=== PATIENT | male | born 1995 | race Caucasian/White ===

== ENCOUNTER 2017-06-26 17:10 | Emergency (ER) | payer BC ==
[2017-06-26] VITALS (18 sets, daily range): BP systolic 133–173; BP diastolic 34–118; PULSE 74–106; TEMP 36.7; O2SAT 94–100; Ht 188 cm; Wt 84.1 kg
[~2017-06-26] VITALS: Ht 188 cm; Wt 84.1 kg
[2017-06-26] MEDS ORDERED: IBUP-1050 PO (18:08)
--- NOTE | 2017-06-26 18:08 | EMERGENCY ROOM VISIT NOTE ---
History First contact with patient: 17:55 Chief Complaint: WRIST PAIN Stated Complaint: BROKEN WRIST SENT BY DR ATWOOD OFFICE History of Present Illness The patient is a 22 year old male who presents to the Emergency Room with complaints of fall and left wrist injury. The patient states that he fell last night. He admits to drinking alcohol. He does not recall how he fell. He states that he has abrasion and mild pain in his low back. He states he feels as though he pulled a muscle in his left groin. His biggest complaint is of left wrist pain. The patient rates his discomfort a 7/10. He denies striking his head or having headache, contusion, bleeding to the head. The patient was seen at [facility] earlier today and had an x-ray. The patient states that this was reviewed by Dr. Kraus who recommended he come to the emergency department. Review of Systems A 10 system review of systems was completed with positives and pertinent negatives listed in the HPI. Past Medical/Surgical History patient denies Social History Smoking Status: Never Smoker Housing Status: lives with family Occupation Status: [employer] student Current/Historical Medications Scheduled PRN Hydrocodone/Acetaminophen 5MG/325MG ([place] 5MG/325MG), 1-2 TABLET PO Q6H PRN for Pain Ibuprofen (Advil), 600 MG PO DAILY PRN for Pain or Fever Physical Exam Vital Signs Date Time Temp Pulse Resp B/P (MAP) Pulse Ox O2 Delivery O2 Flow Rate FiO2 06/26/17 21:20 92 20 150/91 97 Room Air 06/26/17 21:15 97 20 150/91 98 Room Air 06/26/17 21:00 98 20 153/98 97 Room Air 06/26/17 20:45 97 20 156/107 97 Room Air 06/26/17 20:44 90 20 156/107 98 Room Air 06/26/17 20:30 104 16 155/108 97 Room Air 06/26/17 20:25 06/26/17 20:15 105 22 155/103 96 Room Air 06/26/17 20:00 90 16 133/93 97 Room Air 06/26/17 19:45 93 28 151/110 100 Nasal Cannula 3.0 06/26/17 19:30 99 18 156/106 96 Nasal Cannula 3.0 06/26/17 19:15 79 27 150/116 94 Room Air 06/26/17 19:10 74 26 164/96 98 Nasal Cannula 3.0 06/26/17 19:05 87 27 156/110 98 Nasal Cannula 3.0 06/26/17 19:00 85 26 161/34 98 Nasal Cannula 3.0 06/26/17 18:55 93 29 165/101 99 Nasal Cannula 3.0 06/26/17 18:50 93 26 173/118 100 Nasal Cannula 3.0 06/26/17 18:46 94 20 145/118 99 Nasal Cannula 2.0 06/26/17 18:45 106 16 145/118 100 Nasal Cannula 3.0 06/26/17 18:39 36.7 100 12 155/111 98 Room Air 06/26/17 18:38 97 06/26/17 17:17 36.8 118 18 159/70 96 Room Air Physical Exam VITALS: Vitals are noted on the nurse's note and reviewed by myself. Vital signs stable. GENERAL: This is a 22-year-old male, in no acute distress, nondiaphoretic, well- developed well-nourished. SKIN: There is a very superficial, nonbleeding abrasion to the left low back. There is no tenting of the skin. Capillary reflex less than 2 seconds. HEAD: Normocephalic atraumatic. EARS: External auditory canals clear, tympanic membranes pearly galicia without erythema or effusion bilaterally. No hemotympanum. No mosley sign. No mastoid tenderness. EYES: Pupils equal round and reactive to light and accommodation. Conjunctivae without injection, sclerae without icterus. Extraocular movements intact. NOSE: Patent, turbinates without inflammation or discharge. No sinus tenderness. No septal hematoma or bleeding. FACE: No facial tenderness. Full range of motion of the jaw without tenderness. MOUTH: Mucous membranes moist. Pharynx without erythema or exudate. Uvula midline. Airway patent. Tongue does not deviate. NECK: Supple without nuchal rigidity. Cervical spine is nontender. Full range of motion of the neck without tenderness. No JVD. HEART: Regular rate and rhythm without murmurs gallops or rubs. LUNGS: Clear to auscultation bilaterally without wheezes, rales or rhonchi. No retractions or accessory muscle use. No chest tenderness. ABDOMEN: Positive bowel sounds x 4. Soft, nontender, without masses or organomegaly. MUSCULOSKELETAL: There is tenderness to palpation to the left wrist diffusely. Sensation is intact to sharp but the patient reports numbness in all of the fingers. There is no tenderness to palpation of the left forearm, elbow, humerus or shoulder. Remaining extremities are unremarkable. There is no tenderness over the lumbar vertebrae. There is no flank ecchymosis. NEURO: Patient was alert and oriented to person place and time. Normal Mini- Mental status exam. Normal sensation to light and sharp touch. No focal neurological deficits. Medical Decision & Procedures ER Provider Diagnostic Interpretation: INTRAPROCEDURAL LEFT WRIST 2 VIEWS CLINICAL HISTORY: CLOSED REDUCTION LT WRIST COMPARISON STUDY: No previous studies for comparison. FINDINGS: 15 seconds of fluoroscopic time was utilized. 2 fluoroscopic spot images are provided for interpretation. There are small fracture fragments arising from the dorsal aspect of the distal radius. There is a triquetral fracture. There is a scaphoid fracture. There is no dislocation. IMPRESSION: 1. Fractures of the scaphoid, radius and triquetrum 2. No evidence of dislocation Laboratory Results 06/26/17 18:20 Red Blood Count 5.33, Mean Corpuscular Volume 87.1, Mean Corpuscular Hemoglobin 30.8, Mean Corpuscular Hemoglobin Concent 35.3, Mean Platelet Volume 8.8, Neutrophils (%) (Auto) 81.1, Lymphocytes (%) (Auto) 9.7, Monocytes (%) (Auto) 8.9, Eosinophils (%) (Auto) 0.0, Basophils (%) (Auto) 0.0, Neutrophils # (Auto) 9.40, Lymphocytes # (Auto) 1.13, Monocytes # (Auto) 1.03, Eosinophils # (Auto) 0.00, Basophils # (Auto) 0.00 06/26/17 18:20 Test 06/26/17 18:20 White Blood Count 11.60 K/uL (4.8-10.8) Red Blood Count 5.33 M/uL (4.7-6.1) Hemoglobin 16.4 g/dL (14.0-18.0) Hematocrit 46.4 % (42-52) Mean Corpuscular Volume 87.1 fL (80-100) Mean Corpuscular Hemoglobin 30.8 pg (25-34) Mean Corpuscular Hemoglobin Concent 35.3 g/dl (32-36) Platelet Count 240 K/uL (130-400) Mean Platelet Volume 8.8 fL (7.4-10.4) Neutrophils (%) (Auto) 81.1 % Lymphocytes (%) (Auto) 9.7 % Monocytes (%) (Auto) 8.9 % Eosinophils (%) (Auto) 0.0 % Basophils (%) (Auto) 0.0 % Neutrophils # (Auto) 9.40 K/uL (1.4-6.5) Lymphocytes # (Auto) 1.13 K/uL (1.2-3.4) Monocytes # (Auto) 1.03 K/uL (0.11-0.59) Eosinophils # (Auto) 0.00 K/uL (0-0.5) Basophils # (Auto) 0.00 K/uL (0-0.2) RDW Standard Deviation 40.0 fL (36.4-46.3) RDW Coefficient of Variation 12.6 % (11.5-14.5) Immature Granulocyte % (Auto) 0.3 % Immature Granulocyte # (Auto) 0.04 K/uL (0.00-0.02) Anion Gap 6.0 mmol/L (3-11) Est Creatinine Clear Calc Drug Dose 124.6 ml/min Estimated GFR () 111.4 Estimated GFR (Non- 96.1 BUN/Creatinine Ratio 8.9 (10-20) Calcium Level 9.3 mg/dl (8.5-10.1) Total Bilirubin 1.5 mg/dl (0.2-1) Aspartate Amino Transf (AST/SGOT) 56 U/L (15-37) Alanine Aminotransferase (ALT/SGPT) 37 U/L (12-78) Alkaline Phosphatase 86 U/L (45-117) Total Protein 8.4 gm/dl (6.4-8.2) Albumin 4.7 gm/dl (3.4-5.0) Globulin 3.7 gm/dl (2.5-4.0) Albumin/Globulin Ratio 1.3 (0.9-2) Medications Administered Medications (Trade) Dose Ordered Sig/Osbaldo Route Start Time Stop Time Status Last Admin Dose Admin Acetaminophen/ Hydrocodone Bitart ([place] 5/325mg Home Pack) 1 homepack UD ONCE PO 06/26/17 19:30 06/26/17 19:31 DC 06/26/17 20:47 1 [facility] ED Course The patient was seen and examined. Previous visits were reviewed. The patient presents to the emergency department for a left wrist fracture diagnosed and splinted by [facility]. He was referred to the emergency department by orthopedics for reduction of the perilunate dislocation. The patient has superficial abrasion to the lower back but no tenderness over the spine. He does not have any flank ecchymosis. He has not had any hematuria. He has no abdominal tenderness on examination. He does not have any signs or symptoms of intracranial bleeding or skull fracture. He does not have any chest wall tenderness on examination. He does not have any neurologic deficit. He is able to walk without any difficulty. I initially discussed the case with . He was able to review the outpatient x-rays. He states the patient will need conscious sedation and reduction. The patient was advised of this. I also discussed this with my attending physician, Dr. Avila. Conscious sedation was provided by Dr. Avila, please see his dictation for details. The reduction and splinting was performed by orthopedics. Please see their dictation for details. The patient was monitored for several hours after the sedation. He was alert and oriented. The discharge instructions were done by orthopedics. The patient should return to the ER with any worsening symptoms. Otherwise, he should follow-up with orthopedics in one week. The patient was also seen and examined by who agrees with the assessment and treatment plan. Medical Decision The differential diagnosis includes intracranial bleeding, skull fracture, lumbar fracture, renal contusion, intra-abdominal injury, extremity fracture, among others Medication Reconcilliation Current Medication List: was personally reviewed by me Blood Pressure Screening Patient's blood pressure: Elevated blood pressure Blood pressure disposition: Elevated BP felt to be situational Impression Primary Impression: Closed perilunate dislocation of left wrist Departure Information Prescriptions Hydrocodone/Acetaminophen 5MG/325MG ([place] 5MG/325MG) Tab 1-2 TABLET PO Q6H Y for Pain, #12 TAB For Initial Treatment Prov: John Ewing,P.A. 06/26/17 Referrals No Doctor, Assigned (PCP) Patient Instructions My [facility] Problem Qualifiers Primary Impression: Closed perilunate dislocation of left wrist Encounter type: initial encounter Qualified Codes: S63.095A - Other dislocation of left wrist and hand, initial encounter
[2017-06-26 18:35] LABS: COMPLETE YES; HEMATOCRIT 46.4 % (42-52); IG% 0.3 %; LYMPH % 9.7 %; LYMPH ABS # 1.13 K/uL (1.2-3.4); MEAN CELL VOLUME 87.1 fL (80-100); MEAN CORPUSCULAR HEMOGLOBIN 30.8 pg (25-34); MEAN CORPUSCULAR HGB CONC 35.3 g/dl (32-36); MEAN PLATELET VOLUME 8.8 fL (7.4-10.4); MONO % 8.9 %; NEUT % 81.1 %; PLATELET COUNT 240 K/uL (130-400); RED BLOOD COUNT 5.33 M/uL (4.7-6.1)
[2017-06-26] MEDS ORDERED: KETAMINE HCL INJ 50 MG/ML 10 ML VIAL ONE (18:40)
[2017-06-26 19:01] LABS: BUN/CREATININE RATIO 8.9 (10-20); CALCIUM 9.3 mg/dl (8.5-10.1); CREATININE 1.1 mg/dl (0.60-1.40); POTASSIUM 3.6 mmol/L (3.5-5.1)
[2017-06-26 19:04] LABS: ALB/GLOB RATIO 1.3 (0.9-2)
--- NOTE | 2017-06-26 19:26 | EMERGENCY ROOM VISIT NOTE ---
ED Visit Note First contact with patient: 17:55 Procedural Sedation Indication left perilunate dissociation and scaphoid fracture reduction. Total time: 24 minutes. Written consent was obtained after the risks and benefits were explained to the patient, including, but not limited to aspiration, allergic reaction, breathing difficulties, cardiac complications, vomiting, pain, event recall, bleeding, and /or infection. Pre-sedation examination and paperwork completed. The patient was on 100% oxygen via NRB prior to the procedure. Continous end tidal CO2 monitoring, pulse oximetry, and cardiac monitoring were utilized. Suction, airway equipment, medications, respiratory equipment, and appropriate personnel were prepared prior to the initiation of the procedure. A time out was taken. Sedation was achieved utilizing 160 mg of ketamine. After I observed the patient had reached the appropriate level of sedation the main procedure was performed without complication. Sedation was discontinued and the monitoring continued. The patient recovered quickly from the effects of the medication without complication or adverse event.
[2017-06-26] MEDS ORDERED: NORCO 5/325MG HOME PACK PO ONE (19:30)
[2017-06-26] MEDS ORDERED: HYDR-5688 PO (19:34)
--- NOTE | 2017-06-26 20:01 | Medical Consult ---
Consultation Note Date of Service Jun 26, 2017. Consultation Note CHIEF COMPLAINT: Left wrist injury. HISTORY OF PRESENT ILLNESS: He was a pleasant 22-year-old male, [employer] student, right-hand dominant, who fell down the stairs at a social last evening injuring his left wrist. He went to health services earlier today where x-rays were obtained and he was to have seen me in the office tomorrow, but he was contacted by my office after I looked at his x-rays to go to the emergency room where a closed reduction could be performed for his Saldaña scaphoid perilunate dislocation. He admits to some numbness in his thumb index and middle finger approximately 25%. Past medical history: Denies. past surgical history: Denies. MEDICATIONS: None. ALLERGIES: No known Drug allergies. FAMILY HISTORY: Noncontributory. SOCIAL HISTORY: [employer] student. Admits to alcohol use. Denies smoking. REVIEW OF SYSTEMS: A 10-point review of systems is noted in the ER medical record. PHYSICAL EXAM: Patient is in no acute distress breathing easily at 16 breaths per minute. The patient ambulates with a normal gait and coordination. They have an appropriate mood and affect. They weigh 84 kg and are 188 cm tall. Focusing on his left upper extremity, he has multiple abrasions of the wrist and hand. He has swelling about the wrist and hand. He has brisk cap refill of all his digits. His sensation to light touch is slightly diminished in the thumb and index finger more so than the middle finger approximately 25% at most , his ulnar 2 digits are intact. His motor to his median, radial, ulnar, AIN, PIN is intact, but limited secondarily to pain. RADIOGRAPHS: 3 views done at [facility] showed a perilunate dislocation and a suspected scaphoid fracture. IMPRESSION: Left wrist Trans scaphoid, Lindsey-lunate dislocation, initial visit in the emergency room. PLAN: After a lengthy discussion with the patient and his father who is a physician. Telephone, explant and the seriousness of this injury and that the perilunate dislocation needed to be reduced today. If this was unsuccessful, he may need to be referred for an open reduction and addressing any other injuries to the wrist. If the closed reduction was successful, he would be followed up closely and still may require referral to a hand specialist to address the scaphoid fracture. The risks of the reduction included continued pain, loss of reduction, and the need for further surgery. They wish to proceed with surgery and he signed the consent form, which I administered. Postreduction he will be placed in a sugar tong splint with a thumb spica component. He will elevate and ice. He was given cast care instructions as well as compartment syndrome warning signs. He will use a sling when out in public. The patient understood all my instructions and explanation; all their questions were satisfactorily addressed. PROCEDURE: A time-out was performed identifying the left wrist as the correct wrist for closed reduction. Once adequate sedation was performed by emergency room staff, he was placed in finger traps with 12 pounds of traction on the humerus. After approximately 10 minutes, mini C-arm was brought in to determine if the perilunate dislocation was reduced. It did require further flexion of the wrist. The weights were removed as were the finger traps. He was placed in a sugar tong splint with a thumb spica component that was well- padded and it was molded with slight wrist flexion. Postreduction mini C-arm films were obtained showing a reduced perilunate dislocation and a scaphoid fracture. Postreduction, his pain was much improved as was the sensation of his digits. A CT scan with 3-D reconstructions will be obtained. He will follow all my above instructions. He will be referred to Dr. Fred Stanley, hand specialist, down in [place] for an appointment on Saturday.
--- NOTE | 2017-06-26 20:38 | DIAGNOSTIC IMAGING REPORT ---
CT LEFT UPPER EXTREMITY WITHOUT CT DOSE: 885.86 mGy.cm CLINICAL HISTORY: left wrist carpal dislocation TECHNIQUE: Helical images were acquired in the sagittal plane. Reformatted imaging was performed. A dose lowering technique was utilized adhering to the principles of ALARA. COMPARISON STUDY: Intraoperative left wrist dated 06/26/2017 FINDINGS: There is an acute comminuted fracture involving the midpole and distal scaphoid. There is an acute triquetral fracture. There is an acute chip fracture arising from the dorsal aspect of the distal radius. There is acute chip fracture involving the lunate. The capitate lunate relationship appears normal. The scapholunate distance appears normal. There are no dislocations or subluxations identified. IMPRESSION: 1. Acute comminuted fracture involving the midpole the distal scaphoid 2. Acute triquetral fracture 3. Acute chip fracture arising from the dorsal surface of distal radius 4. Acute chip fracture involving the lunate 5. No evidence of dislocation Electronically signed by: Dany Blanchard M.D. 06/26/2017 8:37 PM Dictated Date/Time: 06/26/2017 8:31 PM
--- NOTE | 2017-06-26 20:47 | DIAGNOSTIC IMAGING REPORT ---
INTRAPROCEDURAL LEFT WRIST 2 VIEWS CLINICAL HISTORY: CLOSED REDUCTION LT WRIST COMPARISON STUDY: No previous studies for comparison. FINDINGS: 15 seconds of fluoroscopic time was utilized. 2 fluoroscopic spot images are provided for interpretation. There are small fracture fragments arising from the dorsal aspect of the distal radius. There is a triquetral fracture. There is a scaphoid fracture. There is no dislocation. IMPRESSION: 1. Fractures of the scaphoid, radius and triquetrum 2. No evidence of dislocation Electronically signed by: Dany Blanchard M.D. 06/26/2017 8:46 PM Dictated Date/Time: 06/26/2017 8:45 PM
== END 2017-06-26 21:35 | disposition home or self-care (01) ==
LOC: C.EDB 17:12 → C.ED 21:35
DX: S63.095A Other dislocation of left wrist and hand, initial encounter (principal); S62.002A Unspecified fracture of navicular [scaphoid] bone of left wrist, initial encounter for closed fracture; S30.810A Abrasion of lower back and pelvis, initial encounter; W10.9XXA Fall (on) (from) unspecified stairs and steps, initial encounter; M54.5 Low back pain

== ENCOUNTER → 2017-09-12 | Outpatient (CLI) | payer BC ==
[~2017-09-12] MED LIST: HYDR-5688 PO; IBUP-1050 PO
== END | disposition home or self-care (01) ==
LOC: C.RDSM 10:30
PROVIDERS: ATTEND Orthopaedic Surgery
DX: S62.102A Fracture of unspecified carpal bone, left wrist, initial encounter for closed fracture (principal); S62.022A Displaced fracture of middle third of navicular [scaphoid] bone of left wrist, initial encounter for closed fracture; X58.XXXA Exposure to other specified factors, initial encounter; Z09 Encounter for follow-up examination after completed treatment for conditions other than malignant neoplasm

== ENCOUNTER 2017-10-14 17:51 | Emergency (ER) | payer BC ==
[~2017-10-14] VITALS: Ht 188 cm; Wt 87.9 kg
[2017-10-14 18:05] VITALS: BP 153/96; TEMP 36.5; Ht 188 cm; Wt 87.9 kg
[2017-10-14] MEDS ORDERED: MoRPHine SULFATE 4 MG/ML 1 ML CARP\\VIAL IV STA (18:13)
[2017-10-14] MEDS ORDERED: METH-644 PO (18:53)
--- NOTE | 2017-10-14 18:55 | EMERGENCY ROOM VISIT NOTE ---
History First contact with patient: 18:08 Chief Complaint: SHOULDER DISLOCATION Stated Complaint: FELL DOWN STAIRS, DISLOCATED SHOULDER History of Present Illness The patient is a 22 year old male who presents to the Emergency Room via private vehicle with complaints of "fell downstairs, dislocated right shoulder" . The patient states that just prior to arrival he was walking down steps, when he tripped, fell and his right arm got caught in the railing next step causing it to be pulled from his body. He believes it is dislocated. He rates his overall pain currently as a 10/10. He denies any other pain or injury. Review of Systems A complete 6-point Review of Systems was discussed with the patient, with pertinent positives and negatives listed in the History of Present Illness. All remaining Review of Systems questions can be considered negative unless otherwise specified. Past Medical/Surgical History Wrist fracture Family History Non contributory Social History Smoking Status: Never Smoker Housing Status: lives with family Occupation Status: [employer] student Current/Historical Medications Scheduled Methylphenidate HCl (Methylphenidate HCl ER), 27 MG PO DAILY Physical Exam Vital Signs Date Time Temp Pulse Resp B/P (MAP) Pulse Ox O2 Delivery O2 Flow Rate FiO2 10/14/17 19:52 92 98 10/14/17 19:06 95 Room Air 10/14/17 18:05 36.5 91 18 153/96 95 Room Air Physical Exam VITAL SIGNS - Vital signs and nursing notes were reviewed. Stable. GENERAL - 22-year-old male appearing his stated age who is in no acute distress. Communicates well with provider and answers questions appropriately. SKIN - Without rashes. Skin overlying the right shoulder is unremarkable. HEAD - NC/AT. EXTREMITIES - patient's right shoulder is in near complete abduction. No ROM secondary to pain of R shoulder. He is neurovascularly intact. +5/5 strength noted in UE/LE bilaterally. Good R wrist pulse. Medical Decision & Procedures ER Provider Diagnostic Interpretation: R SHOULDER MIN 2 VIEWS ROUTINE CLINICAL HISTORY: Right shoulder pain following fall. COMPARISON: None FINDINGS: The right humeral head is dislocated anteriorly with respect to the glenoid. A vague lucency projecting over the glenoid is indeterminate but does not appear to represent a fracture. Alignment of the right acromioclavicular joint is anatomic. IMPRESSION: 1. Anterior right shoulder dislocation. 2. Vague lucency projecting over the glenoid. This is likely artifactual. A fracture could appear similar although is considered less likely. Electronically signed by: Trey Vásquez M.D. 10/14/2017 6:52 PM Dictated Date/Time: 10/14/2017 6:50 PM RIGHT SHOULDER 2 VIEWS CLINICAL HISTORY: Postreduction examination. FINDINGS: 2 views of the right shoulder are compared to study performed earlier the same day 10/14/2017. The Skeletal structures are well mineralized. There has been successful reduction of the dislocated right shoulder with rastafarian of near-anatomic alignment. No fracture is clearly identified. The acromioclavicular joint appears preserved. The overlying soft tissues are within normal limits. Imaged right lung parenchyma appears clear. IMPRESSION: 1. There has been successful reduction of the dislocated right shoulder. 2. No fracture is clearly seen. Electronically signed by: Esteban Wang M.D. 10/14/2017 7:33 PM Dictated Date/Time: 10/14/2017 7:32 PM Medications Administered Medications (Trade) Dose Ordered Sig/Osbaldo Route Start Time Stop Time Status Last Admin Dose Admin Morphine Sulfate (MoRPHine SULFATE INJ) 4 mg NOW STAT IV 10/14/17 18:13 10/14/17 18:15 DC 10/14/17 18:31 4 MG Hydromorphone HCl (Dilaudid Inj) 0.5 mg NOW STAT IV 10/14/17 18:59 10/14/17 19:00 DC 10/14/17 19:05 0.5 MG Medical Decision Patient was seen and evaluated as above. He presents to us today with right shoulder dislocation. X-ray was obtained and reveals dislocation. IV access was established and he was given 4 mg of morphine. We tend to do the shoulder but he was still in a great deal of pain. He was given 0.5 mg of Dilaudid. He was then placed prone and while the emergency Department tech was applying scapular traction I had the patient extend and push the elbow towards the floor. This immediately went back into place. She notes no pain. He has complete alleviation of his discomfort. Repeat x-ray was obtained with results as above. No acute fracture however there is excellent reduction of the previous dislocation. He was observed here. He appears stable for outpatient management. O2 sats were well. He is to follow-up with Dr. Kraus. He was educated upon management, educated upon worrisome symptoms in which to return, had questions about discharge, and was discharged home in good condition. Arm sling was applied. He was neurovascularly intact post reduction. In the evaluation and treatment of this patient, the following differential diagnoses were considered: Shoulder Contusion, Shoulder Fracture, Shoulder Dislocation, Thoracic Outlet Syndrome, Adhesive Capsulitis, Rotator Cuff Tear, Proximal Clavicle Head Fracture, Apical Pneumonia, Pneumothorax, Hemothorax, or TB. Impression Primary Impression: Shoulder dislocation Departure Information Dispostion Home / Self-Care Condition GOOD Referrals No Doctor, Assigned (PCP) Giovanni Kraus MD Patient Instructions My [facility] Additional Instructions You have been treated in the Emergency Department for Shoulder Pain. You have received pain medicine in the emergency department which impairs your ability to operate a vehicle. It is illegal for you to drive after receiving these medicines. For pain control, you can use the following soft-eyi-chysouw medicines: - Regular strength (325mg/tab) Tylenol (acetaminophen) 2 tabs every 4-6 hours as needed. Do not exceed 12 tablets in a 24 hour period. Avoid taking more than 3 grams (3000 mg) of Tylenol per day. This includes any other sources of acetaminophen you may take on a regular basis. - Regular strength (200 mg/tab) Advil (ibuprofen) 1-2 tabs every 4-6 hours as needed. Do not exceed a dose of 3200 mg per day. If this is a recent injury (<24 hrs), ice can be applied to the area of pain for the first 3 days to help decrease pain and inflammation. You have been provided the number for an Orthopaedic Surgeon. You should call this number as soon as possible to establish a follow-up visit from today's Emergency Department visit. Keep the shoulder brace/sling in place until evaluated by Orthopedics. Continue to perform range of motion exercises several times per day to help prevent the development of a "frozen shoulder". Return to the Emergency Department if your current symptoms worsen despite treatment course outlined above, or if you develop any of the following symptoms : intractable pain despite aforementioned treatment course or new onset of numbness or tingling of the arm.
[2017-10-14] MEDS ORDERED: HYDROmorphone INJ 0.5 MG/0.5 ML SYR IV STA (18:59)
[2017-10-14 19:06] VITALS: O2SAT 95
--- NOTE | 2017-10-14 19:34 | DIAGNOSTIC IMAGING REPORT ---
RIGHT SHOULDER 2 VIEWS CLINICAL HISTORY: Postreduction examination. FINDINGS: 2 views of the right shoulder are compared to study performed earlier the same day 10/14/2017. The Skeletal structures are well mineralized. There has been successful reduction of the dislocated right shoulder with confucianist of near-anatomic alignment. No fracture is clearly identified. The acromioclavicular joint appears preserved. The overlying soft tissues are within normal limits. Imaged right lung parenchyma appears clear. IMPRESSION: 1. There has been successful reduction of the dislocated right shoulder. 2. No fracture is clearly seen. Electronically signed by: Esteban Wang M.D. 10/14/2017 7:33 PM Dictated Date/Time: 10/14/2017 7:32 PM
[2017-10-14 19:52] VITALS: PULSE 92; O2SAT 98
== END 2017-10-14 19:54 | disposition home or self-care (01) ==
LOC: C.EDB 17:52 → C.EDD 19:54
DX: S43.014A Anterior dislocation of right humerus, initial encounter (principal); W01.0XXA Fall on same level from slipping, tripping and stumbling without subsequent striking against object, initial encounter; Y92.89 Other specified places as the place of occurrence of the external cause; Z79.899 Other long term (current) drug therapy

== ENCOUNTER → 2017-10-15 | Outpatient (CLI) | payer BC ==
[~2017-10-15] MED LIST changes: -HYDR-5688 PO; -IBUP-1050 PO; +METH-644 PO
--- NOTE | 2017-10-15 12:23 | DIAGNOSTIC IMAGING REPORT ---
L WRIST MIN 3 VIEWS ROUTINE CLINICAL HISTORY: FRACTURE L WRIST UNSPECIFIED CARPAL BONE postoperative evaluation COMPARISON: 09/12/2017 DISCUSSION: Linear screw traversing the proximal and distal fragments of the navicular. 2.3 mm separation between the fracture fragments with potential developing loosening about the metallic pin traversing the fracture fragments. This appearance suggests a developing nonunion as well as pin loosening. Additional short pin traversing of the lunate. Mild degenerative changes of the remaining osseous structures. There is no evidence for soft tissue swelling. IMPRESSION: 1. 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 2. A pin traversing the fracture line shows developing loosening as well as increased bony distraction with no significant callus formation or periosteal reaction 3. Interval removal of the pins traversing the medial carpal bones. The above report was generated using voice recognition software. It may contain grammatical, syntax or spelling errors. Electronically signed by: Zhao Acosta M.D. 10/15/2017 12:22 PM Dictated Date/Time: 10/15/2017 12:20 PM
== END | disposition home or self-care (01) ==
LOC: C.RAD 11:44
PROVIDERS: ATTEND Orthopaedic Surgery
DX: Z09 Encounter for follow-up examination after completed treatment for conditions other than malignant neoplasm (principal); S62.102A Fracture of unspecified carpal bone, left wrist, initial encounter for closed fracture; S62.022A Displaced fracture of middle third of navicular [scaphoid] bone of left wrist, initial encounter for closed fracture; X58.XXXA Exposure to other specified factors, initial encounter

== ENCOUNTER → 2017-11-07 | Outpatient (CLI) | payer BC | END | disposition home or self-care (01) | LOC: C.RDSM 18:27 | PROVIDERS: ATTEND Orthopaedic Surgery | DX: Z09 Encounter for follow-up examination after completed treatment for conditions other than malignant neoplasm (principal); S62.102A Fracture of unspecified carpal bone, left wrist, initial encounter for closed fracture; S62.022A Displaced fracture of middle third of navicular [scaphoid] bone of left wrist, initial encounter for closed fracture; X58.XXXA Exposure to other specified factors, initial encounter ==

== ENCOUNTER → 2017-11-14 | Outpatient (CLI) | payer BC ==
--- NOTE | 2017-11-14 08:35 | DIAGNOSTIC IMAGING REPORT ---
L UPPER EXTREMITY WITHOUT HISTORY: 22 years-old Male LT WRIST FRACTURE follow-up study in a patient with left wrist fractures COMPARISON: Left wrist radiographs 11/07/2017, 07/18/2017, CT 06/26/2017 TECHNIQUE: Multiple axial CT images of the left upper extremity were obtained without the use of IV contrast. Coronal and sagittal images were obtained from the axial data set and submitted for review. Additional 3-D rendered images were generated from a separate workstation. A dose lowering technique was used consistent with the principals of NATALI. FINDINGS: Peripherally sclerotic fracture line of the mid pole scaphoid is present without significant bony bridging identified involving the fracture fragments. There is 2.5 mm separation of the fracture fragments along the dorsal margin as seen on image 41 series 200. The proximal and distal poles of the scaphoid are also mildly sclerotic compared to the adjacent carpal bones. The cannulated fixation screw which traverses the scaphoid fracture demonstrates mild surrounding lucency measuring up to 1.1 mm as seen on image 32 series 200. Small cannulated screw of the lunate redemonstrated. Chronic peripherally sclerotic chip fracture fragments are seen surrounding the lunate. There are two ghost tracks from prior K wire placement within the triquetrum with complete healing of the remote fracture. Distal carpal row appears intact. 4 mm corticated bone fragment adjacent to the dorsal radius compatible with healed chip fracture. Remote healed fracture involves the Listers tubercle. Ulna and imaged proximal metacarpals appear intact. Mild persistent soft tissue swelling about the wrist. Imaged flexor and extensor tendons appear grossly intact. There is mild soft tissue swelling surrounding the third and fourth extensor compartments. No large joint effusion or opaque foreign body. IMPRESSION: 1. Fixated mid pole scaphoid fracture demonstrates no significant bony bridging of the proximal and distal fracture fragments. Additionally, there is 2.5 mm separation of the fracture fragments as noted on comparison radiographs, and there is mild lucency surrounding the scaphoid cannulated screw suggesting hardware loosening. 2. Slightly sclerotic appearance of the scaphoid in relation to the other carpal bones raises the possibility of developing avascular necrosis with nonunion. 3. Healed fractures of the lunate, triquetrum and distal radius. Chronic fracture of Dick's tubercle. 4. Mild dorsal soft tissue swelling about the dorsal wrist, notably within the region of the third and fourth extensor compartments. The above report was generated using voice recognition software. It may contain grammatical, syntax or spelling errors. Electronically signed by: Yonis Ovalle M.D. 11/14/2017 8:34 AM Dictated Date/Time: 11/14/2017 8:13 AM
== END | disposition home or self-care (01) ==
LOC: C.CTS 07:39
PROVIDERS: ATTEND Orthopaedic Surgery
DX: S62.022D Displaced fracture of middle third of navicular [scaphoid] bone of left wrist, subsequent encounter for fracture with routine healing (principal); X58.XXXD Exposure to other specified factors, subsequent encounter; R93.7 Abnormal findings on diagnostic imaging of other parts of musculoskeletal system

== ENCOUNTER → 2018-01-09 | Outpatient (CLI) | payer BC | END | disposition home or self-care (01) | LOC: C.RDSM 11:25 | PROVIDERS: ATTEND Orthopaedic Surgery | DX: Z09 Encounter for follow-up examination after completed treatment for conditions other than malignant neoplasm (principal); S62.002G Unspecified fracture of navicular [scaphoid] bone of left wrist, subsequent encounter for fracture with delayed healing; X58.XXXA Exposure to other specified factors, initial encounter ==